=== PATIENT | female | born 1975 | race American Indian/Alaskan Native ===

== ENCOUNTER 2018-09-24 19:20 | Emergency (ER) | payer OTHER ==
[2018-09-24 20:03] LABS: Basophils % (Auto) 0.5 % (0.0-1.8); Eosinophils # (Auto) 0.4 K/mm3 (0.0-0.4); Eosinophils % (Auto) 5.7 % (0.0-4.3); Hematocrit 28.6 % (30.3-42.9); Hemoglobin 9.2 gm/dl (10.1-14.3); Lymphocytes # (Auto) 1.9 K/mm3 (1.2-5.4); Lymphocytes % (Auto) 28.4 % (13.4-35.0); Mean Corpuscular HGB Conc 32 % (30-34); Mean Corpuscular Volume 84 fl (79-97); Monocytes # (Auto) 0.6 K/mm3 (0.0-0.8); Monocytes % (Auto) 9.1 % (0.0-7.3); Platelet Count 264 K/mm3 (140-440); Red Blood Count 3.43 M/mm3 (3.65-5.03)
--- NOTE | 2018-09-24 20:27 | XRay Report ---
FINAL REPORT PROCEDURE: Chest. TECHNIQUE: PA and lateral views. HISTORY: Shortness of breath . COMPARISON: No prior studies are available for comparison. FINDINGS: The heart size is normal. There is mild tortuosity of the thoracic aorta. The lungs are clear and wel l expanded. There are no pleural effusions. The soft tissues and regional skeleton are unremarkable. IMPRESSION: No evidence of acute cardiopulmonary disease.
[2018-09-24] MEDS ORDERED: ATROVENT IH ONE (20:29)
[2018-09-24] MEDS ORDERED: PROVENTIL IH ONE (20:29)
--- NOTE | 2018-09-24 20:35 | Emergency Department Report ---
HPI - General Chief Complaint: Dyspnea/Respdistress Time Seen by Provider: 09/24/18 20:23 - HPI HPI: Room 5 The patient is a 42-year-old female presenting with a chief complaint of shortness of breath. The patient is status post tummy 07/19/[address] Tanner. The patient states she was in normal state of health until today she developed intermittent shortness of breath and dyspnea on exertion. Patient denies chest pain, cough or fever. The patient contacted her surgeon and was advised to come to the ED to rule out pulmonary embolus. Location: Lungs Duration: One day Quality: Shortness of breath Severity: Moderate Modifying factors: [see above] Context: [see above] Mode of transportation: [not driving] ED Past Medical Hx - Past Medical History Previous Medical History?: No - Surgical History Past Surgical History?: Yes Additional Surgical History: tummy ck 09/18/18. tubal ligaiton. gastric sleeve. - Family History Family history: no significant - Social History Smoking Status: Never Smoker Substance Use Type: None (denies illicit drug use), Alcohol (occasional) - Medications Home Medications: Home Medications Medication Instructions Recorded Confirmed Last Taken Type ALBUTEROL Inhaler (OR & NICU) 2 puff IH QID PRN #1 inhalation 09/24/18 Unknown Rx [Proair] ED Review of Systems ROS: Stated complaint: SOB Other details as noted in HPI Constitutional: denies: fever Eyes: denies: eye pain ENT: denies: throat pain Respiratory: shortness of breath, SOB with exertion Cardiovascular: denies: chest pain Endocrine: no symptoms reported Gastrointestinal: abdominal pain (appropriate postop) Genitourinary: denies: dysuria Musculoskeletal: denies: back pain Neurological: denies: headache Physical Exam - Physical Exam Vital Signs: Vital Signs 09/24/18 19:28 Temperature 98.0 F Pulse Rate 75 Respiratory 18 Rate Blood Pressure 116/88 O2 Sat by Pulse 100 Oximetry Physical Exam: GENERAL: The patient is well-developed well-nourished female lying on stretcher not appearing to be in acute distress. [] HEENT: Normocephalic. Atraumatic. Extraocular motions are intact. Patient has moist mucous membranes. NECK: Supple. Trachea midline CHEST/LUNGS: Clear to auscultation. There is no respiratory distress noted. HEART/CARDIOVASCULAR: Regular. There is no tachycardia. There is no gallop rub or murmur. ABDOMEN: There is no abdominal distention. SKIN: There is no rash. There is no edema. There is no diaphoresis. NEURO: The patient is awake, alert, and oriented. The patient is cooperative. The patient has normal speech MUSCULOSKELETAL: There is no evidence of acute injury. ED Course Vital Signs 09/24/18 19:28 Temperature 98.0 F Pulse Rate 75 Respiratory 18 Rate Blood Pressure 116/88 O2 Sat by Pulse 100 Oximetry ED Medical Decision Making - Lab Data Result diagrams: 09/24/18 19:40 09/24/18 19:40 Laboratory Tests 09/24/18 09/24/18 09/24/18 19:40 19:40 20:28 WBC 6.6 RBC 3.43 L Hgb 9.2 L Hct 28.6 L MCV 84 MCH 27 L MCHC 32 RDW 18.0 H Plt Count 264 Lymph % (Auto) 28.4 Blanco % (Auto) 9.1 H Eos % (Auto) 5.7 H Baso % (Auto) 0.5 Lymph # 1.9 Blanco # 0.6 Eos # 0.4 Baso # 0.0 Seg Neutrophils % 56.3 Seg Neutrophils # 3.7 Sodium 137 Potassium 4.6 Chloride 102.2 Carbon Dioxide 25 Anion Gap 14 BUN 15 Creatinine 0.7 Estimated GFR > 60 BUN/Creatinine Ratio 21 Glucose 86 Calcium 8.3 L Troponin T < 0.010 NT-Pro-B Natriuret Pep 204.8 - EKG Data -: EKG Interpreted by Me EKG shows normal: sinus rhythm Rate: normal - EKG Data When compared to previous EKG there are: previous EKG unavailable Interpretation: nonspecific ST-T wave bhupinder (T-wave inversions in leads 3 and aVF) - Radiology Data Radiology results: report reviewed (chest x-ray, CT chest), image reviewed (chest x-ray, CT chest) interpreted by me: Chest x-ray-no focal infiltrates, no pneumothorax Findings [facility] [address] [place] [address] XRay Report Signed Patient: DEBORA KOTHARI MR#: [id number] : 1975 Acct:[id number] Age/Sex: 42 / F ADM Date: 09/24/18 Loc: ED Attending Dr: Ordering Physician: CANDY LONDON MD Date of Service: 09/24/18 Procedure(s): XR chest routine 2V Accession Number(s): [id number] cc: CANDY LONDON MD Fluoro Time In Minutes: FINAL REPORT PROCEDURE: Chest. TECHNIQUE: PA and lateral views. HISTORY: Shortness of breath . COMPARISON: No prior studies are available for comparison. FINDINGS: The heart size is normal. There is mild tortuosity of the thoracic aorta. The lungs are clear and well expanded. There are no pleural effusions. The soft tissues and regional skeleton are unremarka b le. IMPRESSION: No evidence of acute cardiopulmonary disease. Transcribed By: MRM Dictated By: DEBORA THOMSON MD Electronically Authenticated By: DEBORA THOMSON MD Signed Date/Time: 09/24/182026 DD/ 27 TD/TT: 09/24/182027 [facility] [address] [place] [address] Cat Scan Report Signed Patient: DEBORA KOTHARI MR#: [id number] : 1975 Acct:[id number] Age/Sex: 42 / F ADM Date: 09/24/18 Loc: ED Atten ding Dr: Ordering Physician: CANDY LONDON MD Date of Service: 09/24/18 Procedure(s): CT angio chest Accession Number(s): [id number] cc: CANDY LONDON MD FINAL REPORT PROCEDURE: CT angiogram chest with contrast. TECHNIQUE: Computerized tomographic angiography of the chest was performed after the IV injection of iodinated nonionic contrast including image processing. The image data was postprocessed using 2-dimensional multiplanar reformatted (MPR) and 3- dimensional (MIP and/or volume rendered) techniques. HISTORY: shortness of breath after recent abdominal surgery COMPARISON: No prior studies are available for comparison. FINDINGS: The trachea and central bronchi appear normal. The lungs are clear and well expanded. There are no signs of pneumonia. There are no pleural effusions. The thoracic aorta has a normal caliber without evidence of dissection. The pulmonary arteries enhance normally. There is no evidence of pulmonary embolism. There is no mediastinal adenopathy. The heart size is nor mal. The adrenal glands are not enlarged. The thoracic skeleton appears intact. There is a partially imaged catheter in the subcutaneous fat of the anterior abdominal wall. IMPRESSION: No evidence of pulmonary embolism nor other significant abnormality. Transcribed By: MRM Dictated By: DEBORA THOMSON MD Electronically Authenticated By: DEBORA THOMSON MD Signed Date/Time: 09/24/182218 DD/ 20 TD/TT: 09/24/182220 - Medical Decision Making Results discussed with patient. I pointed out the patient has mild anemia but not to the point where I would consider a blood transfusion at this time. Strong warnings given - Differential Diagnosis atelectasis, pneumonia, PE, CHF Critical care attestation.: If time is entered above; I have spent that time in minutes in the direct care of this critically ill patient, excluding procedure time. ED Disposition Clinical Impression: Dyspnea Disposition: DC-01 TO HOME OR SELFCARE Is pt being admited?: No Does the pt Need Aspirin: No Condition: Stable Instructions: Dyspnea (ED) Additional Instructions: Return to the emergency department immediately should you develop worsening symptoms, fever, inability to tolerate food or liquid or any other concerns. Prescriptions: ALBUTEROL Inhaler (OR & NICU) [Proair] 2 puff IH QID PRN #1 inhalation PRN Reason: Shortness Of Breath Referrals: BUNNY LEIJA MD [Primary Care Provider] - 3-5 Days Time of Disposition: 22:32
[2018-09-24 21:07] LABS: BUN/Creatinine Ratio 21; Blood Urea Nitrogen 15 mg/dL (7-17); Calcium 8.3 mg/dL (8.4-10.2); Hemolysis Index 16
--- NOTE | 2018-09-24 22:19 | Cat Scan Report ---
FINAL REPORT PROCEDURE: CT angiogram chest with contrast. TECHNIQUE: Computerized tomographic angiography of the chest was performed after the IV injection of iodinated nonionic contrast including image processing. The image data was postprocessed using 2-dim ensional multiplanar reformatted (MPR) and 3-dimensional (MIP and/or volume rendered) techniques. HISTORY: shortness of breath after recent abdominal surgery COMPARISON: No prior studies are available for comparison. FINDINGS: The trachea and central bronchi appear normal. The lungs are clear and well expanded. There are no si gns of pneumonia. There are no pleural effusions. The thoracic aorta has a normal caliber without edgar dence of dissection. The pulmonary arteries enhance normally. There is no evidence of pulmonary embol ism. There is no mediastinal adenopathy. The heart size is normal. The adrenal glands are not enlarge d. The thoracic skeleton appears intact. There is a partially imaged catheter in the subcutaneous fat of the anterior abdominal wall. IMPRESSION: No evidence of pulmonary embolism nor other significant abnormality.
[2018-09-24 23:00] VITALS: BP 118/74
== END 2018-09-24 23:01 | disposition home or self-care (01) ==
LOC: ED 19:20
DX: R06.00 Dyspnea, unspecified (principal); Z98.51 Tubal ligation status
CPT/HCPCS: 36415; 71046; 71275; 80048; 83880; 84484; 85025; 93005; 93010; 94640; 99284; Q9967